=== PATIENT | female | born 1950 | race African-American/Black ===

== ENCOUNTER 2016-07-02 22:21 | Emergency (ER) | payer SELFPAY ==
[~2016-07-02] VITALS: Ht 154.9 cm; Wt 53.2 kg
[2016-07-02 22:26] VITALS: BP 122/86; PULSE 65; RESP 18; TEMP 97.5; O2SAT 99
[2016-07-02] MEDS ORDERED: FLUORESCEIN SOD 1 MG STRIP EACH EYE ONE (23:30)
[2016-07-02] MEDS ORDERED: PROPARACAINE HCL 0.5% OPHT SOLN 15 ML BTL EACH EYE ONE (23:30)
[2016-07-03] MEDS ORDERED: ERYTOIN10 EACH EYE (00:29)
--- NOTE | 2016-07-03 00:29 | PD ---
HPI Chief Complaint: Eye Problems/Injury Time Seen by Provider: 23:19 Travel History International Travel<30 days: No Contact w/Intl Traveler<30days: No Traveled to known affect area: No History of Present Illness HPI Patient is a 66-year-old female presents with bilateral eye irritation and itching as well as some redness for the past week. 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 She is coming by her daughter who is here for another complaint. She states she wears bifocals but has not had a checkup in years. She denies any upper respiratory symptoms. Denies any decreased visual acuity from her baseline. States symptoms been gradually worsening. [facility] Social History Alcohol Use: Yes (WINE) Tobacco Use: No Substance Use: No Allergies-Medications (Allergen,Severity, Reaction): Coded Allergies: No Known Allergies (Unverified , 07/02/16) Reported Meds & Prescriptions Reported Meds & Active Scripts Active Erythromycin Opth Oint 5 Mg/Gm Oint 1 Applic EACH EYE BID 7 Days Review of Systems Except as stated in HPI: all other systems reviewed are Neg Physical Exam Narrative GENERAL: Well-nourished, well-developed patient. SKIN: Focused skin assessment warm/dry. HEAD: Normocephalic. EYES: No scleral icterus. Really there is minimal bilateral injection of the sclera, Michael-Pen is 16 on the right 18 on the left, pupils are PERRLA, no fluorescein uptake seen bilaterally. Extraocular movements are intact. NECK: Supple, trachea midline. No JVD or lymphadenopathy. CARDIOVASCULAR: Regular rate and rhythm without murmurs, gallops, or rubs. RESPIRATORY: Breath sounds equal bilaterally. No accessory muscle use. GASTROINTESTINAL: Abdomen soft, non-tender, nondistended. MUSCULOSKELETAL: No cyanosis, or edema. BACK: Nontender without obvious deformity. No CVA tenderness. Data Data Last Documented VS Vital Signs Date Time Temp Pulse Resp B/P Pulse Ox O2 Delivery O2 Flow Rate FiO2 07/02/16 22:26 97.5 65 18 122/86 99 Orders Fluorescein Strip (Shquf-V-Uguthk A.T.) (07/02/16 23:30) Proparacaine 0.5% Opth Soln (Alcaine 0.5 (07/02/16 23:30) MDM Medical Decision Making Medical Screen Exam Complete: Yes Emergency Medical Condition: Yes Differential Diagnosis Viral conjunctivitis, bacterial conjunctivitis, corneal abrasion, glaucoma, allergic conjunctivitis, chemical conjunctivitis. Narrative Course Patient was roomed in emergency department, she appears well and in no apparent distress. she does have minimal lateral conjunctival erythema. Could be consistent with an exposure conjunctivitis allergic conjunctivae this or less likely bacterial conjunctivitis. We will cover her for the latter. She is stable for discharge discussed need follow-up with her outpatient clerk for checkup as her visual acuity is decreased bilaterally and discussed return to ED criteria. Diagnosis Primary Impression: Conjunctivitis Qualified Code: H10.33 - Acute conjunctivitis of both eyes, unspecified acute conjunctivitis type Additional Instructions: Follow-up with your eye doctor by phone in the morning. Med/Other Pt SpecificInfo: Prescription(s) given Scripts Erythromycin Opth Oint 5 Mg/Gm Oint1 Applic EACH EYE BID 7 Days Ref 0 Prov:Kory Sarkar MD 07/03/16 Disposition: 01 DISCHARGE HOME Condition: Stable Kory Sarkar MD July 03, 2016 00:29
== END 2016-07-03 00:42 | disposition home or self-care (01) ==
LOC: PHED 22:21 → PHEFT 07-03 00:42
DX: H10.33 Unspecified acute conjunctivitis, bilateral (principal)
CPT/HCPCS: 99283